=== PATIENT | female | born 1960 ===

== ENCOUNTER 2023-12-16 11:45 | Inpatient (IN) | payer OTHER ==
[~2023-12-16] VITALS: Ht 160 cm; Wt 44.5 kg
[2023-12-16] MEDS ORDERED: TENORMIN25 MG PO (13:41)
[2023-12-16 18:10] LABS: COL EPI 119 SECONDS (82-175)
[2023-12-23] MEDS ORDERED: LIDOCAINE HCL 1%/Epi 20ML VIAL IJ ONE ×2 (07:41→09:30)
[2023-12-23] MEDS ORDERED: BUPIVACAINE HCL/PF 0.5% 30ML ML ONE (07:41)
[2023-12-23] MEDS ORDERED: METRONIDAZOLE/SODIUM CHLORIDE 500 MG/100 ML PIGGYBACK IV ONE (07:41)
[2023-12-23] MEDS ORDERED: CEFTRIAXONE SODIUM 2,000 MG VIAL ONE (07:42)
[2023-12-23] MEDS ORDERED: CHLORHEXIDINE GLUCONATE 120 ML BOTTLE TOP ONE ×2 (08:00→09:30)
[2023-12-23] MEDS ORDERED: METRONIDAZOLE/SODIUM CHLORIDE 200 ML IV ONE (09:30)
[2023-12-23] MEDS ORDERED: CEFTRIAXONE SODIUM 2,000 MG in 0.9 % SODIUM CHLORIDE 50 ML IV ONE (09:30)
[2023-12-23] MEDS ORDERED: BUPIVACAINE HCL/PF 0.5% 30ML ML IU ONE (09:30)
[2023-12-23] MEDS ORDERED: OxyCODONE HCL 5 MG TABLET (ROXICODONE) PO PRN (11:00)
[2023-12-23] MEDS ORDERED: RINGERS SOLUTION,LACTATED 1,000 ML IV SCH (11:00)
[2023-12-23] MEDS ORDERED: MORPHINE SULFATE 4 MG/ML CARTRIDGE IV PRN (11:00)
[2023-12-23] MEDS ORDERED: ONDANSETRON HCL 2 MG/ML VIAL IV PRN (11:00)
[2023-12-23] MEDS ORDERED: ENALAPRILAT DIHYDRATE 1.25 MG/ML VIAL IV PRN (12:45)
[2023-12-23] MEDS ORDERED: SIMETHICONE 125 MG CAPSULE PO SCH (13:00)
[2023-12-23] MEDS ORDERED: HYOSCYAMINE SULFATE 0.125 MG TAB.SUBL SL SCH (13:00)
[2023-12-23] MEDS ORDERED: ACETAMINOPHEN 500 MG GEL..CAP PO SCH (14:00)
[2023-12-23 14:45] LABS: HEMATOCRIT 38.2 % (36.0-45.00); HEMOGLOBIN 12.7 g/dL (12.0-15.00); MEAN CORPUSCULAR HEMOGLOBIN 28.2 pg (27.00-32.0); MEAN CORPUSCULAR HGB CONC 33.2 g/dl (32.0-36.0); PLATELET COUNT 131 K/uL (150-450); RED CELL DISTRIBUTION WIDTH 13.4 % (11.5-14.5)
[2023-12-23] MEDS ORDERED: CELECOXIB 200 MG CAPSULE PO SCH (17:00)
[2023-12-23] MEDS ORDERED: POLYETHYLENE GLYCOL 3350 17 GM BLIST.PACK PO SCH (17:00)
[2023-12-23] MEDS ORDERED: METOCLOPRAMIDE HCL 5 MG/ML VIAL IV SCH (17:00)
[2023-12-23] MEDS ORDERED: GABAPENTIN 300 MG CAPSULE PO SCH (17:00)
[2023-12-23] MEDS ORDERED: FAMOTIDINE/PF 20 MG/2 ML VIAL IV PUSH SCH (21:00)
[2023-12-23] MEDS ORDERED: ATENOLOL 25 MG TABLET PO SCH (21:00)
[2023-12-24 05:34] LABS: HEMATOCRIT 36.6 % (36.0-45.00); HEMOGLOBIN 12.1 g/dL (12.0-15.00); MEAN CELL VOLUME 84.7 fL (80.00-100.00); MEAN CORPUSCULAR HGB CONC 33.1 g/dl (32.0-36.0); PLATELET COUNT 145 K/uL (150-450); RED BLOOD COUNT 4.32 M/uL (4.00-6.00); RED CELL DISTRIBUTION WIDTH 13.2 % (11.5-14.5)
[2023-12-24 05:53] LABS: ALBUMIN 2.6 gm/dL (3.4-5.0); CREATININE SERUM 0.91 mg/dL (0.55-1.02); GFR 62.04; PHOSPHOROUS 3.8 mg/dL (2.5-4.9); POTASSIUM 4.44 mEq/L (3.5-5.1)
[2023-12-24 06:29] LABS: MAGNESIUM 1.3 mg/dL (1.8-2.4)
[2023-12-24] MEDS ORDERED: MAGNESIUM SULFATE IN WATER 4 GM/100 ML PIGGYBACK IV ONE (07:15)
[2023-12-24] MEDS ORDERED: LACTULOSE 20 G/30 ML BLIST.PACK PO SCH (09:00)
[2023-12-24] MEDS ORDERED: LACTOBACILLUS ACIDOPHILUS 1 CAP CAP PO SCH (09:00)
[2023-12-24] MEDS ORDERED: ENOXAPARIN SODIUM 40 MG/0.4 ML SYRINGE SUBCUTANEO SCH (17:00)
[2023-12-25 06:19] LABS: HEMATOCRIT 36.9 % (36.0-45.00); HEMOGLOBIN 12.4 g/dL (12.0-15.00); MEAN CELL VOLUME 83.4 fL (80.00-100.00); MEAN CORPUSCULAR HEMOGLOBIN 28.1 pg (27.00-32.0); MEAN CORPUSCULAR HGB CONC 33.7 g/dl (32.0-36.0); RED BLOOD COUNT 4.42 M/uL (4.00-6.00)
[2023-12-25 06:25] LABS: PLATELET COUNT 130 K/uL (150-450)
[2023-12-25 07:12] LABS: CALCIUM 8.5 mg/dL (8.5-10.1); CREATININE SERUM 0.75 mg/dL (0.55-1.02); GFR 77.55; MAGNESIUM 2.1 mg/dL (1.8-2.4); POTASSIUM 3.91 mEq/L (3.5-5.1)
[2023-12-25 07:26] LABS: PHOSPHOROUS 1.8 mg/dL (2.5-4.9)
[2023-12-25] MEDS ORDERED: ENOXAPARIN SODIUM 40 MG/0.4 ML SYRINGE SUBCUTANEO SCH (09:00)
[2023-12-25] MEDS ORDERED: NAPH,MB-DB/K PH,MBDB 1 PKT PACKET PO ONE (10:30)
[2023-12-25] MEDS ORDERED: POTASSIUM PHOS,M-BASIC-D-BASIC 3 MM/ML VIAL IV ONE (11:00)
== END 2023-12-25 11:05 | disposition home or self-care (01) | DRG 330 ==
LOC: O/R 12-23 05:18 → SURG 12-23 05:18 → SURH 12-23 07:00 → SURG 12-23 13:04
PROVIDERS: Internal Medicine Geriatric Medicine; ADMIT Colon & Rectal Surgery; ATTEND Colon & Rectal Surgery
PROC: 0DBP4ZZ Excision of Rectum, Percutaneous Endoscopic Approach (ICD-10-PCS; 2023-12-23)
PROC: 0DJD8ZZ Inspection of Lower Intestinal Tract, Via Natural or Artificial Opening Endoscopic (ICD-10-PCS; 2023-12-23)
PROC: 0DTN4ZZ Resection of Sigmoid Colon, Percutaneous Endoscopic Approach (ICD-10-PCS; principal; 2023-12-23 07:00)
DX: K57.32 Diverticulitis of large intestine without perforation or abscess without bleeding (principal); K92.1 Melena; K66.0 Peritoneal adhesions (postprocedural) (postinfection)